=== PATIENT | female | born 1960 | race Hispanic/Latino ===

== ENCOUNTER 2019-07-25 09:45 | Emergency (ER) | payer OTHER ==
[2019-07-25 10:15] VITALS: BP 128/83
[2019-07-25] MEDS ORDERED: IBUPROFEN 600 MG TAB PO ONE (16:08)
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
[2019-07-25] MEDS ORDERED: traMADol 50 MG TAB PO ONE (16:17)
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
== END 2019-07-25 17:40 | disposition home or self-care (01) ==
LOC: ED 09:45
DX: S29.011A Strain of muscle and tendon of front wall of thorax, initial encounter (principal); Z90.89 Acquired absence of other organs; Z79.899 Other long term (current) drug therapy; Z88.6 Allergy status to analgesic agent; V49.49XA Driver injured in collision with other motor vehicles in traffic accident, initial encounter; Y93.89 Activity, other specified; Y92.410 Unspecified street and highway as the place of occurrence of the external cause; Y99.8 Other external cause status